=== PATIENT | male | born 1990 | race Caucasian/White ===

== ENCOUNTER 2022-01-21 23:35 | Emergency (ER) | payer SELFPAY ==
--- NOTE | ~2022-01-21 | XR_ITS ---
EXAMINATION: XR ANKLE, RIGHT CLINICAL INFORMATION: Fall with popping sensation COMPARISON: None TECHNIQUE: AP, lateral, and mortise views of the right ankle. FINDINGS: No fracture. Alignment is anatomic. Joint spaces are maintained. Small posterior calcaneal enthesophyte. No joint effusion. XR/XR ankle RT min 3V IMPRESSION: No acute fracture or dislocation.
[2022-01-21 23:45] VITALS: BP 168/86; PULSE 96; RESP 20; TEMP 37.3; O2SAT 96; BMI 24.4
[2022-01-22] VITALS: BP 122/73; PULSE 69; O2SAT 98
--- NOTE | 2022-01-22 01:22 | ED.LOWEXIN ---
HPI - Extremity Injury (Lower) General Chief Complaint: Extremity Injury, Lower Stated Complaint: R Leg pain Time Seen by Provider: 01/22/22 00:10 Source: patient Mode of arrival: ambulatory Limitations: no limitations History of Present Illness HPI Narrative: Recurrent patient a heavy door fell on him about 2 weeks ago on his right ankle was seen at the [facility] x-rays workup was negative was given crutches since then pain is not getting better today again while walking she heard a snap and pain has increased in the right ankle patient still has swelling of the right ankle Related Data Previous Rx's Medication Instructions Recorded ibuprofen 600 mg tablet 600 mg PO Q6H PRN pain #30 tabs 01/22/22 Allergies Allergy/AdvReac Type Severity Reaction Status Date / Time amoxicillin Allergy Hives Verified 01/21/22 23:45 Review of Systems Review of Systems: Yes all other systems are reviewed and are negative [facility] Social History Social History Advance Directives: No Advance Directives Information Provided: No Physical Exam Vital Signs: Vital Signs: Last Vital Signs Temp 99.2 F 01/21/22 23:45 Pulse 69 01/22/22 00:00 Resp 20 01/21/22 23:45 BP 122/73 01/22/22 00:00 Pulse Ox 98 01/22/22 00:00 O2 Del Method 01/22/22 00:00 BMI result Body Mass Index 24.4 Appearance: Alert. Oriented X3. No acute distress. HEENT: Pharynx normal. Oral Mucosa moist Neck: Normal inspection. Neck supple. CVS: Normal heart rate and rhythm. Pulses normal. Respiratory: No respiratory distress. Equal air entry bilateral, Abdomen: Soft and nontender. Bowel sounds are present, Skin: Skin warm and dry. Normal skin color. Normal skin turgor. Extremities: Diffuse tenderness right lateral malleolus with swelling ankle mortise intact neurovascular intact No calf tenderness Neuro: Oriented X 3. MDM - Extremity Injury (Lower) MDM Narrative Medical decision making narrative: Patient with right ankle sprain x-ray negative for fracture will give ortho boot and crutches advised to take ibuprofen follow-up with PCP Discharge Plan Discharge Clinical Impression: Ankle sprain and strain Patient Disposition: Home, Self-Care Instructions: Ankle Strain (ED) Additional Instructions: Keep right foot elevated Wear ortho boot and use crutches for ambulation Pain medication as prescribed Follow-up with PCP/orthopedic Prescriptions: New ibuprofen 600 mg tablet 600 mg PO Q6H PRN (Reason: pain) Qty: 30 0RF Stand Alone Forms: Work/School Release Interventions: ED Discharge Assessment Last Done: 01/22/22 01:32
[2022-01-22] MEDS: Ibuprofen 600 MG TABLET PO (01:36)
== END 2022-01-22 01:59 | disposition home or self-care (01) ==
PROVIDERS: Emergency Provider Internal Medicine
DX: M25.571 Pain in right ankle and joints of right foot (principal); M79.604 Pain in right leg
CPT/HCPCS: 73610; 99283